=== PATIENT | female | born 1995 | race Caucasian/White ===

== ENCOUNTER 2018-12-17 14:49 | Inpatient (IN) | payer OTHER ==
[~2018-12-17] VITALS: Ht 152.4 cm; Wt 47.2 kg
[2018-12-17 17:48] LABS: PLATELET COUNT 704 x10^3mcL (130-400); RED CELL DISTRIBUTION WIDTH 12.9 % (11.5-14.5)
[2018-12-17 17:55] LABS: UA SPECIFIC GRAVITY <=1.005 (1.005-1.035); microscopic required? YES; urine erythrocyte 2+ (NEGATIVE)
[2018-12-17 17:58] LABS: CALCIUM 7.9 mg/dL (8.5-10.1); CARBON DIOXIDE 30.8 mmol/L (21-32); CHLORIDE SERUM 98 mmol/L (98-107); CREATININE SERUM 0.5 mg/dL (0.6-1.0); GFR1 > 60 mL/min; GLUCOSE SERUM 80 mg/dL (74-106); POTASSIUM SERUM 3.2 mmol/L (3.5-5.1); SODIUM SERUM 138 mmol/L (136-145)
[2018-12-17 18:03] LABS: ALBUMIN 2.4 g/dL (3.4-5.0); ALKALINE PHOSPHATASE 97 U/L (46-116); ALT/SGPT 8 U/L (14-59); AST/SGOT 6 U/L (15-37); BILIRUBIN TOTAL 0.32 mg/dL (0.20-1.00); LIPASE 223 IU/L (73-393); TOTAL PROTEIN, SERUM 7.9 g/dL (6.4-8.2)
[2018-12-17 18:05] LABS: FREE T4 1.72 ng/dL (0.76-1.46); FREE THYROXINE INDEX 3.3 ug/dL (1.4-4.5); T4(THYROXINE) 9.3 ug/dL (4.7-13.3)
[2018-12-17 18:24] LABS: T3 TOTAL 1.04 ng/mL
[2018-12-17 19:46] LABS: AMPHETAMINE QUAL UR NONE DETECTED (See below)
[2018-12-17 20:02] VITALS: BP 117/41
[2018-12-18 05:06] VITALS: BP 102/63
[2018-12-18 06:20] LABS: BASOPHIL % 0.3 % (0-2); RED CELL DISTRIBUTION WIDTH 12.6 % (11.5-14.5)
[2018-12-18 06:32] LABS: CALCIUM 7.3 mg/dL (8.5-10.1); CARBON DIOXIDE 22.7 mmol/L (21-32); CHLORIDE SERUM 105 mmol/L (98-107); CREATININE SERUM 0.5 mg/dL (0.6-1.0); GFR1 > 60 mL/min; GLUCOSE SERUM 89 mg/dL (74-106); POTASSIUM SERUM 3.4 mmol/L (3.5-5.1); SODIUM SERUM 140 mmol/L (136-145)
[2018-12-18 07:25] LABS: PLATELET COUNT 657 x10^3mcL (130-400)
[2018-12-18 08:11] VITALS: BP 103/63
[2018-12-18 17:35] VITALS: BP 106/66
[2018-12-18 20:49] VITALS: BP 100/58
[2018-12-19 06:19] VITALS: BP 107/64
[2018-12-19 06:48] LABS: BASOPHIL % 0.2 % (0-2); RED CELL DISTRIBUTION WIDTH 12.9 % (11.5-14.5)
[2018-12-19 07:00] LABS: CALCIUM 7.7 mg/dL (8.5-10.1); CARBON DIOXIDE 28.5 mmol/L (21-32); CHLORIDE SERUM 107 mmol/L (98-107); CREATININE SERUM 0.6 mg/dL (0.6-1.0); GFR1 > 60 mL/min; GLUCOSE SERUM 113 mg/dL (74-106); MAGNESIUM 1.8 mg/dL (1.8-2.4); PHOSPHOROUS 3.2 mg/dL (2.5-4.9); POTASSIUM SERUM 3.2 mmol/L (3.5-5.1); SODIUM SERUM 142 mmol/L (136-145)
[2018-12-19 07:50] LABS: PLATELET COUNT 723 x10^3mcL (130-400)
[2018-12-19 10:25] VITALS: BP 115/76
[2018-12-19 17:36] VITALS: BP 111/72
[2018-12-19 21:25] VITALS: BP 119/82
[2018-12-20 05:18] VITALS: BP 112/70
[2018-12-20 06:47] LABS: CALCIUM 7.2 mg/dL (8.5-10.1); CARBON DIOXIDE 25.5 mmol/L (21-32); CHLORIDE SERUM 106 mmol/L (98-107); CREATININE SERUM 0.5 mg/dL (0.6-1.0); GFR1 > 60 mL/min; GLUCOSE SERUM 119 mg/dL (74-106); MAGNESIUM 1.5 mg/dL (1.8-2.4); PHOSPHOROUS 3.1 mg/dL (2.5-4.9); POTASSIUM SERUM 3.5 mmol/L (3.5-5.1); SODIUM SERUM 138 mmol/L (136-145)
[2018-12-20 07:06] LABS: BASOPHIL % 0.3 % (0-2); RED CELL DISTRIBUTION WIDTH 13.2 % (11.5-14.5)
[2018-12-20 07:21] LABS: PLATELET COUNT 576 x10^3mcL (130-400)
[2018-12-20 08:30] VITALS: BP 108/71
[2018-12-20 15:46] VITALS: BP 97/60
[2018-12-20 19:18] VITALS: BP 107/68
[2018-12-21 05:20] VITALS: BP 96/62
[2018-12-21 06:09] LABS: BASOPHIL % 0.3 % (0-2); RED CELL DISTRIBUTION WIDTH 13.3 % (11.5-14.5)
[2018-12-21 07:00] LABS: CALCIUM 7.6 mg/dL (8.5-10.1); CARBON DIOXIDE 26.1 mmol/L (21-32); CHLORIDE SERUM 107 mmol/L (98-107); CREATININE SERUM 0.5 mg/dL (0.6-1.0); GFR1 > 60 mL/min; GLUCOSE SERUM 96 mg/dL (74-106); MAGNESIUM 1.7 mg/dL (1.8-2.4); PHOSPHOROUS 3.7 mg/dL (2.5-4.9); POTASSIUM SERUM 3.8 mmol/L (3.5-5.1); SODIUM SERUM 141 mmol/L (136-145)
[2018-12-21 07:18] VITALS: BP 96/61
[2018-12-21 07:26] LABS: PLATELET COUNT 647 x10^3mcL (130-400)
[2018-12-21 10:07] LABS: CALCIUM 7.6 mg/dL (8.5-10.1); CARBON DIOXIDE 27.6 mmol/L (21-32); CHLORIDE SERUM 106 mmol/L (98-107); CREATININE SERUM 0.6 mg/dL (0.6-1.0); GFR1 > 60 mL/min; GLUCOSE SERUM 111 mg/dL (74-106); POTASSIUM SERUM 4.2 mmol/L (3.5-5.1); SODIUM SERUM 139 mmol/L (136-145)
[2018-12-21] MEDS ORDERED: CANASA1000 MG PO (15:57)
[2018-12-21] MEDS ORDERED: ACIDOPHILUS LA1 EAC1 PO (15:57)
[2018-12-21 16:07] VITALS: BP 96/61
== END 2018-12-21 17:13 | disposition home or self-care (01) | DRG 243 ==
LOC: ED 14:49 → MU 19:11
PROVIDERS: Emergency Medicine; Internal Medicine Gastroenterology; ADMIT Internal Medicine
PROC: 0DBL8ZX Excision of Transverse Colon, Via Natural or Artificial Opening Endoscopic, Diagnostic (ICD-10-PCS; 2018-12-19)
PROC: 0DBP8ZX Excision of Rectum, Via Natural or Artificial Opening Endoscopic, Diagnostic (ICD-10-PCS; 2018-12-19)
PROC: 0DBF8ZX Excision of Right Large Intestine, Via Natural or Artificial Opening Endoscopic, Diagnostic (ICD-10-PCS; 2018-12-19)
PROC: 0DBG8ZX Excision of Left Large Intestine, Via Natural or Artificial Opening Endoscopic, Diagnostic (ICD-10-PCS; 2018-12-19)
PROC: 0DB58ZX Excision of Esophagus, Via Natural or Artificial Opening Endoscopic, Diagnostic (ICD-10-PCS; principal; 2018-12-19 08:00)
PROC: 0DB68ZX Excision of Stomach, Via Natural or Artificial Opening Endoscopic, Diagnostic (ICD-10-PCS; 2018-12-19 08:00)
PROC: 0DBB8ZX Excision of Ileum, Via Natural or Artificial Opening Endoscopic, Diagnostic (ICD-10-PCS; 2018-12-19 08:00)
DX: K22.10 Ulcer of esophagus without bleeding (principal); E83.42 Hypomagnesemia; K52.9 Noninfective gastroenteritis and colitis, unspecified; E83.51 Hypocalcemia; E87.6 Hypokalemia; Z88.0 Allergy status to penicillin; R62.7 Adult failure to thrive; E86.0 Dehydration; Z83.79 Family history of other diseases of the digestive system; Z83.49 Family history of other endocrine, nutritional and metabolic diseases
CPT/HCPCS: 43235; 45380; 84439; 87046; 87046-59; 88344; C9113; G0378; J0744; J1200; J1610; J2250; J2310; J2405; J3010; J3480; J3490; J7030; J7050; Q0092